=== PATIENT | female | born 1985 | race Caucasian/White ===

== ENCOUNTER 2023-01-29 15:32 | Outpatient (CLI) | payer OTHER, SELFPAY ==
--- NOTE | 2023-01-29 16:00 | CRLHL7_ITS ---
For Patients: As a result of the Cures Act, medical imaging exams and procedure reports are released immediately into your electronic medical record. You may view this report before your referring provider. If you have questions, please contact your health care provider. INDICATION: First trimester scan, establish dates. COMPARISON: None. TECHNIQUE: Real-time rudd-scale imaging of the pelvis was performed. FINDINGS: Sonographic imaging demonstrates a single living intrauterine gestation. The embryo demonstrates a regular cardiac rate measuring 180 beats per minute. The embryo`s crown-rump length measurement of 2.0 cm corresponds to a gestational age of 8 weeks 4 days with a sonographic due date of 09/06/2023. There is a normal-appearing yolk sac. There are no gross abnormalities noted within the embryo at this early state of development. The gestational sac has a normal appearance. There is no evidence of a perigestational hemorrhage. The amount of fluid within the sac appears appropriate for gestational age. The cervix is closed. The myometrium appears normal. The ovaries are of normal size. Corpus luteal cyst left ovary is present. Trace incidental free fluid is present call the sac. IMPRESSION: Single living intrauterine with sonographic gestational age 8 weeks 4 days and sonographic due date 09/06/2023. Dictated by Brian Mcfadden MD @ 01/30/2023 10:23:26 AM (Electronically Signed)
== END 2023-01-29 15:33 | disposition home or self-care (01) ==
LOC: US 15:34
PROVIDERS: Visit Provider Obstetrics & Gynecology
DX: Z34.91 Encounter for supervision of normal pregnancy, unspecified, first trimester (principal); Z3A.08 8 weeks gestation of pregnancy
CPT/HCPCS: 76817; 86703; 86803; 86850; 86900; 86901; 87086; 87340; 87491; 87591

== ENCOUNTER 2023-01-29 17:45 | Outpatient (CLI) | payer OTHER, SELFPAY | END 2023-01-29 17:46 | disposition home or self-care (01) | LOC: NFLDREF 01-30 00:13 | PROVIDERS: Visit Provider Physician Assistant | DX: Z34.91 Encounter for supervision of normal pregnancy, unspecified, first trimester (principal); Z3A.08 8 weeks gestation of pregnancy | CPT/HCPCS: 86592; 86703; 86762; 86787; 86803; 86850; 86900; 86901; 87086; 87340; 87491; 87591 ==

== ENCOUNTER 2023-06-14 14:22 | Outpatient (CLI) | payer OTHER, SELFPAY | END 2023-06-14 14:23 | disposition home or self-care (01) | LOC: NFLDREF 06-19 11:19 | PROVIDERS: Visit Provider Obstetrics & Gynecology | DX: Z34.92 Encounter for supervision of normal pregnancy, unspecified, second trimester (principal) | CPT/HCPCS: 86592 ==

== ENCOUNTER 2023-06-19 08:08 | Outpatient (CLI) | payer OTHER, SELFPAY | END 2023-06-19 08:09 | disposition home or self-care (01) | LOC: NFLDREF 12:20 | PROVIDERS: Visit Provider Obstetrics & Gynecology | DX: R73.09 Other abnormal glucose (principal) | CPT/HCPCS: 82951; 82952 ==

== ENCOUNTER 2023-07-12 15:38 | Outpatient (CLI) | payer OTHER, SELFPAY | END 2023-07-12 15:39 | disposition home or self-care (01) | LOC: NFLDREF 15:39 | PROVIDERS: Visit Provider Advanced Practice Midwife | DX: Z13.89 Encounter for screening for other disorder (principal) | CPT/HCPCS: 80306 ==

== ENCOUNTER 2023-07-29 16:48 | Outpatient (CLI) | payer OTHER, SELFPAY ==
[2023-07-29 17:04] VITALS: BP 127/73; PULSE 83; RESP 16; TEMP 36.6
[2023-07-29 17:36] LABS: Appearance Urine Clear (Clear); Bilirubin Urine Negative (Negative); Blood Urine Negative (Negative); Color Urine Yellow (Yellow); Glucose Urine Negative (Negative); Ketones Urine Negative (Negative); Leukocyte Esterase Urine Negative (Negative); Nitrite Urine Negative (Negative); Protein Urine Negative (Negative); Urobilinogen Urine 0.2 (0.2-1.0)
--- NOTE | 2023-07-29 19:21 | PC.OBNST ---
NST Note NST Note Start: 07/29/23 16:57 Freq: ONCE Status: Discharge Protocol: Document 07/29/23 19:11 [facility] (Rec: 07/29/23 19:21 [facility] [id number]) NST Note 6 Para (# of births) 3 EDC 09/06/23 Gestational Age In Weeks & Days 34 Weeks & 3 Days Patient Presented with Complaint(s) of Decreased movement,Pain If Pain, describe location low back flank pain Other Complaints Pressure in tailbone area. Reactive Yes Appropriate for Gestational Age Yes RN Carly Barrios, RN Date 07/29/23 Reactive Yes Appropriate for Gestational Age Yes DIANA Patel, DIANA Date 07/29/23 OB NST charge Yes Complete NST Note via Write Note Yes The provider's electronic signature indicates the NST is reactive/appropriate for gestational age. *Note to provider: If an addendum is required, open the patient's chart and click on the note under the Nurse/Allied Health tab.
[2023-07-30 18:33] LABS: Strep B DNA Probe Negative (Negative)
[2023-08-01 08:49] LABS: Strep B Susceptibility Needed? No
== END 2023-07-29 18:33 | disposition home or self-care (01) ==
LOC: OB OUT 16:49 → OB 17:15
PROVIDERS: Visit Provider Advanced Practice Midwife
DX: O36.8130 Decreased fetal movements, third trimester, not applicable or unspecified (principal); Z3A.34 34 weeks gestation of pregnancy
CPT/HCPCS: 59025; 81003; 87081; 87653; G0463

== ENCOUNTER 2023-09-13 07:18 | Inpatient (IN) | payer OTHER, SELFPAY ==
[2023-09-13] VITALS (19 sets, daily range): BP systolic 121–146; BP diastolic 56–87; PULSE 65–88; RESP 16–20; TEMP 36.3–36.6; BMI 27.4
--- NOTE | 2023-09-13 08:23 | P.LDBA_ITS ---
Subjective History of Present Illness Time Seen by Provider: 08:00 Date Seen: 09/13/23 Narrative: Patient is being admitted to Labor and Delivery for IOL at 41.0 weeks. She is a 37 year old at 41.0 weeks gestation. Her full history and physical was dictated by Siri Burns CNM on 08/15/23. Please see this for details. We discussed options for induction including Pitocin, cook catheter, and Cytotec. Risks and benefits of each were discussed. She would like to proceed with Cytotec. Discussed oral vs vaginal Cytotec and she choose to proceed with vaginal at this time. She is planning a water . She was tested for GBS at 34 weeks while in triage. It was recommended that she be retested at her last visit but she declined. We reviewed risks of not retesting and recommendation to treat like she is GBS positive. We discussed potential risks to baby if they contracted it and that peds may want her to stay for 36-48 hours after delivery if she declines treatment. She asked about retesting today but explained that it would unlikely be results before delivery. She is agreeable to treatment as she doesn't want to stay longer . Specific Issues/Plans (h/o miscarriage x2). SAURABH by 1st trimester USN. Father of baby: Junior (his first child) Belia's daughter's: Margaret 04/13/05, Gerardo 02/20/06 and Any 02/15/15 Baby: Boy. H&P done by Siri Burns CNM on 08/15/23 GBS collected early consider repeating 09/01 if not delivered before. Patient declined repeat GBS screening. IOL scheduled 09/12 1. Conceived on progesterone only pills 2. AMA Cell free DNA:negative, male Level 2 ultrasound 04/16/2023: SLIUP, EFW 45%. Ant placenta w/o previa. Breech. No anomalies identified. Follow up US for EFW 05/10/2023: EFW = 47%. Vtx. SDP 5.1cm. 3. Depression. Doing well on bupropion 300 mg On 150mg per pt on 08/14 4. Exercise-induced asthma 5. E cigarette use, trying to quit 6. History of substance use disorder (meth, last use in 2019) Endorses continued sobriety in Negative UDS. 7. Carpal tunnel syndrome bilaterally. Recommended wrist braces. 8. Elevated 1hr GTT 149 3hr GTT passed low 35 for last number, needed juice in clinic 9. Anemia, RESOLVED 28 weeks: 10.6mg/dL 34 weeks: 12.2 COVID: 1st Dose Tanvi 08/08/2020, booster 06/26/2021 Flu: declined on 02/27/2023 TDAP: 06/27/2023 OB - Problem Based A/P Additional Plan (1) Encounter for induction of labor: Status: Acute (2) Supervision of elderly multigravida: Status: Acute (3) AMA (advanced maternal age) multigravida 35+: Status: Acute Plan ASSESSMENT:? at 41.0 weeks gestation? GBS unknown. Negative at 34 weeks but no retest completed. Will treat as unknown.? complicated but AMA, post dates .? Postterm IOL? ?? PLAN:? 1. Antibiotic prophylaxis treatment per protocol? 2. Reviewed risks and benefits of IOL with pitocin vs cytotec vs cook catheter. Pt prefers cytotec. Pitocin to follow if needed.? 3. Desires water . Consent signed. Hep C negative.? 4. Candidate for analgesia of choice. Planning unmedicated .? 5. Anticipate ? 6. IV placement for GBS treatment. 7. Monitoring per Cytotec policy. Delivery/Labor/Induction Plan Plan: induction Induction method: per misoprostol protocol OB Result Labs Blood Type: O (+) positive GBS Status: unknown (tested negative at 34 weeks but declined repeat test. will assume positive since no recent test.) OB Exam Physical Exam Vital signs: Temp Resp 97.9 F 16 09/13/23 07:32 09/13/23 07:32 Narrative: Psychiatric:? Alert and oriented x3? HEENT:? Normocephalic, atraumatic? Neck:? Supple without adenopathy or thyromegaly? Lungs:? Clear to auscultation bilaterally? Heart:? Regular rate and rhythm, no murmur, rub or gallop? Abdomen:? Soft, nontender, and gravid? Extremities:? No edema or erythema? Detailed Labor and Delivery Exam Patient Gravid: Yes Dilation (cm): 1 Effacement (%): 60 Cervix position: posterior Consistency: soft Contraction Frequency: rare Tachysystole: No Contraction intensity: Mild Fetus (Single) Station: -3 Amniotic Membrane Status: intact Heart Rate Baseline: 130 Monitor Accelerations: Present Monitor Decelerations: None Esthetician Permanent Makeup Artist Variability: Moderate (6-25)
[2023-09-13] MEDS: miSOPROStoL 25 MCG/0.25 TABLET VAGINAL ×2 (08:49→11:49)
[2023-09-13] MEDS: AMPICILLIN 2 GM in 0.9 % SODIUM CHLORIDE Mini-bag 100 ML IVPB (15:30)
--- NOTE | 2023-09-13 16:40 | PM.OBPNL ---
Subjective Time Seen by Provider: 16:40 Date Seen: 09/13/23 Narrative: Belia has received 2 doses of Cytotec. The third dose was held as her contractions were every 2-3 minutes. She is feeling contractions and breathing through some but is fairly comfortable and coping well. She had questionable leaking of fluid x1 but none since and none with cervical exam. Cervical exam 1.5/70%/-2. Cervix very posterior. Encouraged upright positions and labor warm up circuit. We discussed pitocin vs expectant management. she would like expectant management at this time. Will consider pitocin if contractions pace out or don't continue to increase in frequency or intensity. Objective Vital Signs: Last Vital Signs Temp 97.4 F L 09/13/23 15:11 Pulse 68 09/13/23 15:11 Resp 20 09/13/23 15:11 BP 121/60 09/13/23 15:11 Pelvic Exam Dilation (cm): 1.5 Effacement (%): 70 Station: -2 Contractions Monitor mode: External Contraction Frequency: 2-4 Contraction pattern: Regular Contraction intensity: Moderate Assessment Assessment: induction ongoing Station: -2 Heart Rate Baseline: 130 Correction Variability: Moderate (6-25) Monitor Accelerations: Present Monitor Decelerations: None Plan Plan: ASSESSMENT: ? 37 at 41.0 weeks gestation ? complicated by: AMA, postdates IOL, anemia? Labor type: cytotec induction Reassuring FHR tracing? ? Labor complicated by: none ? GBS postive? ? PLAN: ? 1. Routine intrapartum cares as ordered. Expectant management. Consider Pitocin if contraction spacing increases. ? 2. Monitoring per policy, intermittent at this time since >4hr post Cytotec. Can switch to continuous if patient condition changes. ? 3. Candidate for analgesia of choice. Planning unmedicated. Desires waterbirth.? 4. Patient encouraged to reposition and ambulate to promote physiologic labor and . ? 5. Prophylactic antibiotics started. 6. Anticipate ???
[2023-09-13] MEDS: AMPICILLIN 1 GM in 0.9 % SODIUM CHLORIDE Mini-bag 100 ML IVPB (19:38)
--- NOTE | 2023-09-13 20:44 | W.PM.OBVAGDE ---
OB Procedure Vag Delivery Mother Details Mother Details: The patient is a 37 year-old, 6, now Para 4, admitted on 09/13/23 at 41 0/7 weeks gestation. : 6 Para: 4 Weeks Gestation: 41.0 Admission Date: 09/13/23 Additional Details Amniotic Membrane Status: SROM Amniotic Membrane Rupture Date: 09/13/23 Amniotic Membrane Rupture Time: 19:40 Amniotic Membrane Fluid Description: Clear Analgesia/Anesthesia Type: None Waterbirth: Yes Pitcoin: No (pt declined AMTSL) Intrapartal Events: None Induction Method: per misoprostol protocol (x2 doses) Labor Onset: 19:21 Complete: 19:40 Pushin:49 Heart: heart tones during second stage were intermittently auscultated with dopper and remained reassuring. Delivery Details Delivery Date: 09/13/23 Delivery Time: 20:12 Route of delivery: Infant Gender: Male Infant Viability: Alive; Heart Rate Present Position at Delivery: OA Delivery Details: Patient was admitted for induction of labor for post dates. She received 2 doses of cytotec and then labor progressed on its own. She started having painful contractions and asked for pain management options. She elected to try nitrous and this worked well for her. She was still interested in a waterbirth, therefore tub was filled. SROM noted at 1940 with clear fluid. Patient was assumed complete with pushing at 1949. She was then assisted into the water. of a viable male at 2011, kneeling in the tub. Vertex delivered OA. No nuchal cord or shoulder. Body delivered easily and without incident. Infant brought above water, maternal leg assisted over cord, then was passed to mothers abdomen with a vigorous cry. Cord was clamped and cut at > 5 minutes. APGARS were 8 at one minute and 9 at five minutes respectively. Mouth was bulb suctioned. Intact placenta with a 3 vessel cord delivered spontaneously at 2026. Fundus firm. Intact perineum. QBL 325 cc. Patient declined IV pitocin. Mother and baby stable; mother plans to breastfeed. Infant weight pending. Patient was treated for GBS due to swab >5 weeks. She had declined to repeat swab in clinic. She received 1 full dose, 2nd dose was started but did not finish by time of delivery. She received about 1/2 the dose. 1 Minute Interval Total Score: 8 5 Minute Interval Total Score: 9 Additional Details Shoulder Dystocia: No Placenta Delivery Time: 20:28 Placental Delivery Description: Spontaneous Delivery repair: Vicryl Procedure Done: Global Blood Loss: 325 Laceration: None Blood Loss Measurement Type: QBL Bakri Used: No Sponge/Need Count Correct: Yes Cord Vessel Description: 3 Vessels Event Summary Status: Mother and infant were stable after delivery. Disposition: floor
[2023-09-13] MEDS: ACETAMINOPHEN 500 MG TABLET 1000 MG PO (22:36)
[2023-09-14 00:33] VITALS: BP 107/67; PULSE 70; RESP 12; TEMP 36.7
[2023-09-14 04:26] VITALS: BP 109/70; PULSE 88; RESP 16; TEMP 36.7
[2023-09-14] MEDS: IBUPROFEN 600 MG TABLET PO ×2 (04:32→12:46)
--- NOTE | 2023-09-14 07:41 | PM.OBDSVD1 ---
DS: Providers Provider Date Seen: 09/14/23 Date of admission: 09/13/23 07:18 Primary care physician: Not a Local Provider Admitting Clinician: Pastora Mi CNM Attending Physician on discharge: Christine Gamez CNM DS: Diagnosis Discharge Diagnosis (1) care and examination immediately after delivery: Status: Acute (2) Lactating mother: Status: Acute (3) Generalized anxiety disorder: Status: Acute (4) Depression: Status: Chronic Exam Narrative: Exam Narrative: GENERAL APPEARANCE:? normal affect, alert, no distress MOOD:? appropriate CHEST:? clear to auscultation HEART:? regular rate and rhythm ABDOMEN:? soft, non-tender the uterine fundus is At Umbilicus, Midline and is appropriate for the stage of recovery. PERINEUM:? mild edema of the perineum, small lochia EXTREMITIES:? normal and no edema Const: Vital Signs, click to edit/add: Vital Signs - 24 hr 09/13/23 11:49 09/13/23 11:59 09/13/23 15:11 Temperature 97.4 F L Pulse Rate 78 68 Pulse Rate [Blood Pressure Cuff] Respiratory Rate 16 20 Blood Pressure 127/67 121/60 Blood Pressure [Ri ght Arm] 09/13/23 19:21 09/13/23 20:23 09/13/23 20:30 Temperature Pulse Rate 76 88 Pulse Rate [Blood Pressure Cuff] 88 Respiratory Rate Blood Pressure 137/71 134/87 Blood Pressure [Ri ght Arm] 134/87 09/13/23 20:44 09/13/23 20:45 09/13/23 20:59 Temperature Pulse Rate 80 68 Pulse Rate [Blood Pressure Cuff] 80 Respiratory Rate Blood Pressure 132/66 123/66 Blood Pressure [Ri ght Arm] 132/66 09/13/23 20:59 09/13/23 21:14 09/13/23 21:15 Temperature Pulse Rate 67 Pulse Rate [Blood Pressure Cuff] 67 68 Respiratory Rate Blood Pressure 125/74 Blood Pressure [Ri ght Arm] 123/66 125/74 09/13/23 21:29 09/13/23 21:29 09/13/23 21:44 Temperature Pulse Rate 82 Pulse Rate [Blood Pressure Cuff] 82 66 Respiratory Rate Blood Pressure 126/82 Blood Pressure [Ri ght Arm] 126/82 123/71 09/13/23 21:45 09/13/23 22:02 09/13/23 22:02 Temperature Pulse Rate 66 66 Pulse Rate [Blood Pressure Cuff] 66 Respiratory Rate Blood Pressure 123/71 121/56 L Blood Pressure [Ri ght Arm] 121/56 L 09/13/23 22:13 09/13/23 22:14 09/13/23 22:14 Temperature Pulse Rate 67 Pulse Rate [Blood Pressure Cuff] 67 65 Respiratory Rate Blood Pressure 146/65 H Blood Pressure [Ri ght Arm] 146/65 H 136/56 L 09/13/23 22:15 09/14/23 00:33 09/14/23 04:26 Temperature 98.1 F 98.0 F Pulse Rate 65 Pulse Rate [Blood Pressure Cuff] 70 88 Respiratory Rate 12 16 Blood Pressure 136/56 L Blood Pressure [Ri ght Arm] 107/67 109/70 OB - DS: Summary Hospital Course Hospital Course: Belia is a 37 y.o. G 6 P 4024 who was admitted to L & D for induction of labor for post-dates. ?She had a NVD that was uncomplicated. The patient feels well. ?The pain is well controlled with current medications. ?She has no new complaints. ?She is breast feeding and reports things are going well. the patient has done well.? Vitals have been stable.? She has remained afebrile.? Has a good appetite, is tolerating a general diet. ?She is voiding without difficulty.? She is passing gas and has not had a bowel movement.? She is ambulating and denies any dizziness.? Has small amount of rubra lochia. She is undecided, but states will likely just do condoms for prevention. Problems: none plan: Discharge home with baby. Patient declines meds to pharmacy, states she has them at home. Follow up in 2 weeks and 6 weeks. , may see if needed Peripartum Data delivery method: Vaginal Laceration description: None complications: none Victor Infant Gender: Male Discharge Plan: Home Status at Discharge Functional status at discharge: independent ambulation Overall status at discharge: patient is progressing back to baseline Time Spent with Patient Time attestation: Total time spent providing and/or coordinating discharge services: Discharge Plan Discharge Disposition: Home, Self-Care Date of Admission: 09/13/23 07:18 Attending Provider on Discharge: Christine Gamez Primary Care Provider: Provider,Not a Local Condition: Stable Anticipated Discharge Date/Time: 09/14/23 21:00 Discharge Medications: New acetaminophen 500 mg Tablet 1,000 mg PO Q6H PRNQty: 0 0RF docusate sodium 100 mg Capsule 100 mg PO DAILY Qty: 0 0RF ibuprofen 600 mg Tablet 600 mg PO Q6H PRNQty: 0 0RF Continued DHA 200 mg capsule 200 mg PO ONCE HS bupropion HCl 300 mg tablet extended release 24 hr 150 mg PO QAM famotidine [Pepcid] 20 mg tablet 20 mg PO QDAY ondansetron 4 mg tablet,disintegrating 4 mg PO Q8H PRN (Reason: nausea and vomiting) Qty: 30 0RF ferrous sulfate 325 mg (65 mg iron) tablet 325 mg PO Q OTHER DAY Qty: 60 0RF Unisom (doxylamine) 25 mg tablet 25 mg PO QHS PRN (Reason: sleep) Qty: 30 1RF Discharge Orders: Discharge Order (Routine); Ordered 09/14/23 Ordered By: Christine Gamez Patient Education: OB Over the Counter Medication Information, OB Vaginal/Breast Feeding Additional Instructions: Discharge instructions were reviewed with the patient including signs and symptoms of infection and home going medications Nothing vaginally for 6 weeks: no tampons or intercourse Do not drive while taking narcotic pain medication(s) Off Work or School for 8 weeks 2-week visit: discuss feeding concerns, review control options and screen for anxiety/depression. 6-week visit for an annual exam. consultation services are available to all mothers and babies for the first year after delivery.? To make an appointment, please call [phone]. Activity Level: Activity as Tolerated Follow Up Appointments: [facility] [Provider Group] Forms: PlayerTakesAll Info Instructions
[2023-09-14 08:40] VITALS: BP 112/69; PULSE 78; RESP 16; TEMP 36.8
[2023-09-14 12:40] VITALS: BP 115/74; PULSE 78; RESP 16; TEMP 36.7; O2SAT 97
[2023-09-14 16:22] VITALS: BP 117/75; PULSE 72; RESP 16; TEMP 36.6; O2SAT 98
== END 2023-09-14 21:37 | disposition home or self-care (01) | DRG 807 ==
PROVIDERS: Admitting Provider Advanced Practice Midwife; Visit Provider Advanced Practice Midwife
DX: O48.0 Post-term pregnancy (principal); Z37.0 Single live birth; O62.3 Precipitate labor; O99.344 Other mental disorders complicating childbirth; F41.1 Generalized anxiety disorder; F32.A Depression, unspecified; O99.334 Smoking (tobacco) complicating childbirth; F17.290 Nicotine dependence, other tobacco product, uncomplicated; Z3A.41 41 weeks gestation of pregnancy
CPT/HCPCS: 59200; 86592; A9270; J0290